=== PATIENT | male | born 1975 | race Caucasian/White ===

== ENCOUNTER 2023-09-05 19:19 | Inpatient (IN) | payer OTHER ==
[2023-09-05 19:51] VITALS: BMI 27.8
[2023-09-05] MEDS ORDERED: ONDANSETRON *ODT* 4 MG TABLET SL PRN (20:49)
[2023-09-05] MEDS ORDERED: ACETAMINOPHEN 325 MG TABLET (FP) PO PRN (20:49)
[2023-09-05] MEDS ORDERED: NALOXONE (NARCAN) HCL 4 MG/0.1 ML SPRAY NS PRN (20:49)
[2023-09-05] MEDS ORDERED: POLYETHYLENE GLYCOL (HEALTHYLAX) 3350 17 GM PACKET PO PRN (20:49)
[2023-09-05] MEDS ORDERED: BENZONATATE 200 MG CAPSULE PO PRN (20:49)
[2023-09-05] MEDS ORDERED: IBUPROFEN 400 MG TABLET (FP) PO PRN (20:49)
[2023-09-05] MEDS ORDERED: LOPERAMIDE HCL 2 MG CAPSULE PO PRN (20:49)
[2023-09-05] MEDS ORDERED: BENZOCAINE/MENTHOL (CHLORASEPTIC ) LOZENGE MM PRN (20:49)
[2023-09-05] MEDS ORDERED: MAGNESIUM HYDROX 2400MG/30ML ORAL SUSPENSION 30 ML CUP PO PRN (20:49)
[2023-09-05] MEDS ORDERED: BISMUTH SUBSALICYLATE 524 MG/30 ML PO PRN (20:49)
[2023-09-05] MEDS ORDERED: DICYCLOMINE HCL 10 MG CAPSULE PO PRN (20:49)
[2023-09-05] MEDS ORDERED: NALOXONE HCL 0.4 MG/ML VIAL IM PRN (20:49)
[2023-09-05] MEDS ORDERED: guaiFENesin 600 MG TABLET.ER (FP) PO PRN (20:49)
[2023-09-05] MEDS ORDERED: MAG HYDROX/AL HYDROX/SIMETH 30 ML UNIT-DOSE CUP PO PRN (20:49)
[2023-09-05] MEDS ORDERED: chlordiazePOXIDE HCL 25 MG CAPSULE ONE (21:08)
[2023-09-05] MEDS ORDERED: IBUPROFEN 600 MG TABLET (FP) PO ONE (21:08)
[2023-09-05] MEDS: chlordiazePOXIDE HCL 25 MG CAPSULE PO PRN (21:12)
[2023-09-05] MEDS: THIAMINE 100 MG TABLET PO SCH (22:36)
[2023-09-05] MEDS: chlordiazePOXIDE HCL 25 MG CAPSULE PO SCH (22:36)
[2023-09-05] MEDS: MELATONIN 5 MG TABLETS PO SCH (22:36)
[2023-09-06] MEDS: hydrOXYzine PAMOATE 25 MG CAPSULE (FP) PO PRN (05:11)
[2023-09-06] MEDS: GABAPENTIN 300 MG CAPSULE PO SCH (06:50)
[2023-09-06] MEDS: NICOTINE 21 MG/24 HOURS TOPICAL PATCH TD ONE (07:35)
[2023-09-06] MEDS: TAMSULOSIN HCL 0.4 MG CAP PO SCH (09:40)
[2023-09-06] MEDS: PRENATAL VITAMINS W/ FOLIC ACID TABLET (FP) PO SCH (09:40)
[2023-09-06] MEDS: METHOCARBAMOL 500 MG TABLET PO PRN ×2 (10:03→19:35)
[2023-09-06] MEDS: NICOTINE 21 MG/24 HOURS TOPICAL PATCH TD SCH (10:05)
[2023-09-06] MEDS: POTASSIUM CITRATE/CITRIC ACID 2 MEQ/ML ML PO SCH (11:47)
[2023-09-06] MEDS: IBUPROFEN 600 MG TABLET (FP) PO PRN (11:51)
[2023-09-06] MEDS ORDERED: METHOCARBAMOL 750 MG TABLET PO PRN (11:59)
[2023-09-06 12:03] LABS: CHLORIDE 106 mmol/L (98-107); POTASSIUM 4.6 mmol/L (3.5-5.1); SODIUM 140 mmol/L (136-145)
[2023-09-06 12:07] LABS: HEMATOCRIT 42.5 % (35.4-49); HEMOGLOBIN 14.3 GM/dL (11.7-16.9); MCHC 33.6 g/dl (32.0-35.9); MEAN CELL VOLUME 98.2 fl (80-96); MEAN PLT VOLUME 8.1 fl (7.5-11.1); PLATELET COUNT 219 10^3/uL (134-434); RBC 4.33 M/mm3 (4.00-5.60); RDW 14.1 % (11.9-15.9); WHITE BLOOD COUNT 7.3 K/mm3 (4.0-10.0)
[2023-09-06 12:08] LABS: ALBUMIN 3.1 g/dl (3.4-5.0); ANION GAP 6 mmol/L (4-13); CALCIUM 8.2 mg/dL (8.5-10.1); CO2 28 mmol/L (21-32); GLUCOSE,RANDOM 76 mg/dL (74-106)
[2023-09-06 12:09] LABS: BLOOD UREA NITROGEN 10.8 mg/dL (7-18)
[2023-09-06 12:11] LABS: CREATININE 0.9 mg/dL (0.55-1.3); SGPT/ALT 59 U/L (13-61)
[2023-09-06 12:12] LABS: SGOT/AST 68 U/L (15-37)
[2023-09-06 12:13] LABS: BILIRUBIN,TOTAL 1.6 mg/dL (0.2-1); TOT PROT 6.1 g/dl (6.4-8.2)
[2023-09-06 12:14] LABS: ALK PHOS 69 U/L (45-117)
[2023-09-06] MEDS: NICOTINE POLACRILEX 4 MG GUM BUC PRN (17:37)
[2023-09-07] MEDS: chlordiazePOXIDE HCL 25 MG CAPSULE PO SCH (06:03)
[2023-09-08] MEDS: chlordiazePOXIDE HCL 10 MG CAPSULE PO PRN (01:12)
[2023-09-08] MEDS: chlordiazePOXIDE HCL 10 MG CAPSULE PO SCH (05:33)
[2023-09-08] MEDS: DICYCLOMINE HCL 10 MG CAPSULE PO ONE (09:51)
[2023-09-09] MEDS: chlordiazePOXIDE HCL 10 MG CAPSULE PO SCH (05:44)
[2023-09-09] MEDS: DICYCLOMINE HCL 10 MG CAPSULE PO PRN (11:03)
[2023-09-09 21:10] VITALS: BP 108/74; PULSE 60; RESP 16; TEMP 97.7
[2023-09-10] MEDS: chlordiazePOXIDE HCL 10 MG CAPSULE PO ONE (05:47)
== END 2023-09-10 03:00 | disposition left against medical advice (07) | DRG 770 ==
LOC: YASAS 19:19 → Y3N 21:17
PROVIDERS: ADMIT Allergy & Immunology; ATTEND Surgery
PROC: HZ2ZZZZ Detoxification Services for Substance Abuse Treatment (ICD-10-PCS; principal; 2023-09-05)
DX: F10.230 Alcohol dependence with withdrawal, uncomplicated (principal); F13.20 Sedative, hypnotic or anxiolytic dependence, uncomplicated; F17.210 Nicotine dependence, cigarettes, uncomplicated; F19.282 Other psychoactive substance dependence with psychoactive substance-induced sleep disorder; F32.A Depression, unspecified; G62.9 Polyneuropathy, unspecified; I10 Essential (primary) hypertension; N40.0 Benign prostatic hyperplasia without lower urinary tract symptoms; Z87.442 Personal history of urinary calculi
CPT/HCPCS: 36415; 80053; 80305; 80307; 85027; 86780; 93005; 93010